=== PATIENT | male | born 1985 | race Caucasian/White ===

== ENCOUNTER 2019-06-21 16:37 | Emergency (ER) | payer OTHER, SELFPAY ==
--- NOTE | 2019-06-21 16:50 | ED_ITS ---
Entered by Christin Clark, acting as scribe for Polly Julian HPI - Neuro Symptoms/Deficit General: Chief Complaint: Neuro Symptoms/Deficit Stated Complaint: stroke like symptoms Time Seen by Provider: 06/21/19 16:48 Source: patient Mode of arrival: ambulatory Limitations: no limitations History of Present Illness: HPI Narrative: 34 yo m came to the er pov for stroke like symptoms. Onset was today around 1200. Pt states that he started to have the face drooping around noon. He denies any difficulty with speech, arm numbness or weakness, leg numbness or weakness, or any other complaints. Patient drove himself here to the ER. Patient states his symptoms started about noon but the last known well time for him was 11 AM. Onset (ago): day(s) (around 1200) Time: 16:47 Last Observed Normal: 12:00 Timing confirmed by: other (himself) History of same: No Severity: mild Quality: improving Relieving factors: none Exacerbating factors: none Context: gradual onset Associated symptoms: Reports no associated symptoms; Deny chest pain, diaphoresis, headache(s), malaise, nausea, syncope, vertigo or vomiting Treatments Prior to Arrival: none Review of Systems General: Reports: other (negative unless marked) Const: Denies: fever, chills, body aches, fatigue, malaise or diaphoresis Eyes: Denies: change in vision or blurry vision ENMT: Denies: throat pain, painful swallowing, hoarseness, ear pain, ear discharge, Change in hearing or nasal discharge Card: Denies: chest pain, palpitations, irregular heart rhythm, syncope, pre- syncope, shortness of breath on exertion or shortness of breath when lying down Resp: Denies: shortness of breath, productive cough, non-productive cough, wheezing, coughing up blood or chest congestion GI: Denies: abdominal pain, nausea, vomiting, vomiting blood, coffee grounds in vomit, diarrhea, constipation, cramping, blood in stool or black tarry stool : Denies: flank pain, difficulty urinating, painful urination, urinary frequency, urinary urgency, decreased urine ouput, urinary incontinence or blood in urine Musc: Denies: neck pain, back pain, extremity pain, extremity swelling, joint pain, joint swelling, joint warmth or joint stiffness Skin/Breast: Denies: rash, skin tenderness or yellow skin Neuro: Denies: headache, numbness in extremities, weakness in extremities, changes in sensation, lack of coordination, difficulty walking, dizziness, vertigo, confusion, slurred speech, seizure-like activity, involuntary movements or restless legs Endo: Denies: excessive thirst, tired all the time, cold intolerance, excessive sweating, flushing or hot flashes Shailesh/Lymph: Denies: easy bruising, easy bleeding, petechiae or enlarged lymph nodes All/Imm: Denies: hives, throat swelling, tongue swelling, facial swelling or acute wheezing PFSH ED PFSH: Statuses (acute, chronic, etc) shown below reflect problem list status as previously entered and may not be historically accurate Social History Smoking and tobacco status: never smoked NIH stroke score NIHSS: Level Of Consciousness - 1a: 0 Level Of Consciousness Questions - 1b: Both Correct Level Of Consciousness Commands - 1c: Both Correct Best Gaze - 2: Normal Visual Sandoval - 3: No Visual Loss Facial Palsy - 4: Minor Paralysis Motor Arm Right - 5: No Drift Motor Arm Left - 5: No Drift Motor Leg Right - 6: No Drift Motor Leg Left - 6: No Drift Limb Ataxia - 7: Absent Sensory - 8: Normal Best Language - 9: No Aphasia Dysarthia - 10: Normal Extinction And Inattention - 11: 0 Score: Total Score: 1 Physical Exam Const: COMMON NORMALS: no apparent distress, oriented x3, no limitations, healthy appearing and well nourished EXAM LIMITATIONS: no altered mental st atus GENERAL APPEARANCE: cooperative, well kempt and well developed ORIENTATION/CONSCIOUSNESS: Yes awake HENMT: COMMON NORMALS: normocephalic, head/scalp atraumatic, hearing grossly normal bilaterally, external ears normal, EAC's normal, external nose normal and moist oral mucous membranes HEAD & SCALP: normal to inspection, normocephalic and atraumatic FACE & SINUS: normal facial exam and face symmetric NOSE: external nose normal and nares normal EXTERNAL EAR: Yes external ears normal EXTERNAL AUDITORY CANAL: EAC's normal MOUTH: oral and palatal mucosa normal and tongue normal Eye: COMMON NORMALS: PERRL, EOMs intact bilaterally, conjunctivae normal and no scleral icterus GENERAL EYE: normal appearance of both eyes and normal light reflex CONJUNCTIVA: Yes conjunctivae normal SCLERA: sclerae normal CORNEA: Yes corneas normal PUPIL: Yes PERRL DIRECT OPHTHALMOSCOPY: Yes normal light reflex Neck/C-Spine: COMMON NORMALS: full ROM, no lymphadenopathy, supple, no meningeal signs and no JVD GENERAL: Yes normal visual inspection and Yes trachea midline CERVICAL SPINE: Yes cervical ROM normal Chest: COMMONS NORMALS: inspection of chest normal and palpation of chest normal Resp: COMMON NORMALS: normal respiratory effort, no retractions, no use of accessory muscles and clear to auscultation bilaterally EFFORT & INSPECTION: Yes able to speak in complete sentences AUSCULTATION: clear to auscultation bilaterally Cardio: COMMON NORMALS: no JVD, regular rate, regular rhythm, S1 normal heart sound, S2 normal heart sound, no gallops, no clicks, no murmurs and no rub JUGULAR VENOUS DISTENTION: no JVD RATE: regular rate RHYTHM: regular rhythm HEART SOUNDS: S1 normal and S2 normal GI: COMMON NORMALS: soft to palpation, non-tender, no hepatosplenomegaly and no masses INSPECTION: Yes normal to inspection PALPATION: Yes soft and Yes no hepatosplenomegaly : COMMON NORMALS: Yes no CVA tenderness BLADDER/KIDNEY EXAM: Yes no CVA tenderness Back/Pelvis: COMMON NORMALS: no CVA tenderness, thoracic and lumbar spine normal to inspection, no thoracic nor lumbar tenderness and thoraco-lumbar ROM normal Extremity: COMMON NORMALS: normal to inspection, full ROM, normal capillary refill, no joint enlargement, no clubbing, cyanosis or edema and no calf tenderness Neuro: COMMON NORMALS: oriented x3, moves all extremities, no focal motor deficits, no sensory deficits noted and gait normal SENSORIUM/ORIENTATION: Yes other MENINGEAL SIGNS: Yes no meningeal signs CRANIAL NERVES: Yes other (Patient with decreased ability to close right eye and wrinkle forehead. Right-sided facial droop. Symptoms consistent with peripheral nerve problem.) Psych: COMMON NORMALS: mental status grossly normal, thought process normal, cooperative, affect normal, speech normal and activity/motor behavior normal APPEARANCE: Yes well kempt SPEECH: Yes normal speech THOUGHT PROCESS: normal thought process Skin: COMMON NORMALS: no rashes or lesions noted, skin turgor normal, no jaundice, no petechiae and no mottling GENERAL SKIN EXAM: no rashes or lesions noted and turgor normal Course Vital Signs: Vital signs: Vital Signs Temperature 98.3 F 06/21/19 16:53 Pulse Rate 94 06/21/19 19:01 Respiratory Rate 16 06/21/19 19:01 Blood Pressure 151/97 06/21/19 19:01 Pulse Oximetry 96 06/21/19 19:01 MDM - Neuro Symptoms/Deficit MDM Narrative: Medical decision making narrative: Olman is a 34-year-old male who came in with 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 He could not raise his eyebrow or keep his eye closed with symmetric to the left eye. He had right-sided facial droop. He had no other signs or symptoms of stroke. Despite this his ex- wanted a more definitive work-up and a CT was performed. This was normal. The patient declined any blood work, or further evaluation. He wanted to be discharged he was satisfied with this. He agreed to return should his symptoms change or worsen. Imaging Data^: CT Head: Radiologist's impression: [place] [address] CT Scan Report Signed Patient: Olman Westfall Unit #: [id number] : 1985 Age/Sex: 34 / M ADM Date: 06/21/19 Loc: ER Room/Bed: Attending Dr: Ordering Provider/Ordering MD: Polly Julian DO Date of Service: 06/21/19 Procedure(s): CT head wo con* [id number] Accession Number(s): [id number] Report Number: [id number] PROCEDURE INFORMATION: Exam: CT Head Without Contrast Exam date and time: 06/21/2019 5:42 PM Age: 34 years old Clinical indication: Pain; Altered mental status/memory loss and weakness, facial; Headache; Patient HX: RT side facial droop (resolved); Additional info: Newsome/ams TECHNIQUE: Imaging protocol: Computed tomography of the head without contrast. Total DLP: 794 mGy-cm Radiation optimization: All CT scans at this facility use at least one of these dose optimization techniques: automated exposure control; mA and/or kV adjustment per patient size (includes targeted exams where dose is matched to clinical indication); or iterative reconstruction. COMPARISON: No relevant prior studies available. FINDINGS: Brain: Normal. No hemorrhage. Unremarkable white matter. No mass effect. Midline shift: There is no shift of midline structures. Ventricles: Normal. No ventriculomegaly. Bones/joints: Unremarkable. No acute fracture. Sinuses: Visualized sinuses are unremarkable. No fluid levels. Mastoid air cells: Visualized mastoid air cells are well aerated. Soft tissues: Unremarkable. CT/CT head wo con* [id number] IMPRESSION: No acute intracranial abnormality. Radiation Dose CTDIVOL = (mGy): DLP = 794 (mGy-cm) Dictated By: Mario Hess Signed By: Mario Hess Signed Date/Time: 06/21/191836 DD/ 36 Discharge Plan Discharge Patient Disposition: Home, Self-Care Clinical Impression: Malone's palsy Condition: Stable Prescriptions: New valacyclovir 1 gram tablet 1,000 mg PO Q8H 7 Days Qty: 21 RF: 0 prednisone 10 mg tablets,dose pack See Rx Instructions .ROUTE .COMPLEX Qty: 21 RF: 0 Discharge Orders: Discharge Order (Routine); Ordered 06/21/19 Ordered By: Polly Julian Referrals: Joshua Rutledge MD [Physician] - 4-7 days Grullon,JANIS Cho [Referring] - 4-7 days Discharge Diet: Advance as tolerated Discharge Activity: Resume usual activity Patient Instructions: Malone Palsy (ED) Activity Restrictions/Additional Instructions: Please return to the ER immediately for any of the signs or symptoms listed on your discharge instruction sheets, worsening/changing of your symptoms, you are not getting better as quickly as expected, or for ANY other cause or concerns. Be certain to use your eye patch at night as instructed by nursing. Use [id number] eyedrops for lubrication, ask the pharmacist for assistance, do this until you see Tammie Grullon. Discharge Date/Time: 06/21/19 19:02 Coding Level of Care Code ED Food And Beverage Checker for Chg Fwd Exam Problem Focused The documentation recorded by the Eduardo ortiz Stephanie Lyn, accurately reflects the service I personally performed and the decisions made by Iesha alas Eli N Jun 21, 2019 16:37
[2019-06-21 16:53] VITALS: BP 169/112; PULSE 87; RESP 18; TEMP 36.8; O2SAT 100; BMI 46.5
--- NOTE | 2019-06-21 17:08 | CTR_ITS ---
PROCEDURE INFORMATION: Exam: CT Head Without Contrast Exam date and time: 06/21/2019 5:42 PM Age: 34 years old Clinical indication: Pain; Altered mental status/memory loss and weakness, facial; Headache; Patient HX: RT side facial droop (resolved); Additional info: Newsome/ams TECHNIQUE: Imaging protocol: Computed tomography of the head without contrast. Total DLP: 794 mGy-cm Radiation optimization: All CT scans at this facility use at least one of these dose optimization techniques: automated exposure control; mA and/or kV adjustment per patient size (includes targeted exams where dose is matched to clinical indication); or iterative reconstruction. COMPARISON: No relevant prior studies available. FINDINGS: Brain: Normal. No hemorrhage. Unremarkable white matter. No mass effect. Midline shift: There is no shift of midline structures. Ventricles: Normal. No ventriculomegaly. Bones/joints: Unremarkable. No acute fracture. Sinuses: Visualized sinuses are unremarkable. No fluid levels. Mastoid air cells: Visualized mastoid air cells are well aerated. Soft tissues: Unremarkable. CT/CT head wo con* [id number] IMPRESSION: No acute intracranial abnormality. Radiation Dose CTDIVOL = (mGy): DLP = 794 (mGy-cm)
[2019-06-21] MEDS: valACYclovir 1,000 mg Tablet 1000 MG PO (17:21)
[2019-06-21] MEDS: predniSONE 20 mg Tablet 60 MG PO (17:21)
[2019-06-21 18:02] VITALS: RESP 18
[2019-06-21 19:01] VITALS: BP 151/97; PULSE 94; RESP 16; O2SAT 96
== END 2019-06-21 19:02 | disposition home or self-care (01) ==
LOC: ER 17:14
PROVIDERS: Emergency Provider Emergency Medicine
DX: G51.0 Bell's palsy (principal)
CPT/HCPCS: 70450; 99281; 99283; J7512